=== PATIENT | female | born 1990 | race Caucasian/White ===

== ENCOUNTER 2016-12-29 01:25 | Emergency (ER) | payer BC ==
[2016-12-29 03:15] VITALS: BP 99/57
== END 2016-12-29 03:15 | disposition home or self-care (01) ==
LOC: ED 01:25
DX: O99.89 Other specified diseases and conditions complicating pregnancy, childbirth and the puerperium (principal); M62.830 Muscle spasm of back; Z3A.35 35 weeks gestation of pregnancy